=== PATIENT | male | born 1980 | race Caucasian/White ===

== ENCOUNTER 2018-12-07 00:18 | Emergency (ER) | payer BC, OTHER ==
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
[2018-12-07] MEDS ORDERED: IBUPROFEN 600 MG TABLET PO STA (00:48)
[2018-12-07] MEDS ORDERED: TETANUS/DIPHTHERIA/PERTUSSIS 0.5 ML SYRINGE IM ONE (00:56)
--- NOTE | 2018-12-07 01:19 | XRAY Report ---
Reason: injury, pain Procedure Date: 12/07/2018 Accession Number: [id number] / [id number] Procedure: XR - Hand 3 View LT CPT Code: FULL RESULT: EXAM: LEFT HAND RADIOGRAPHY EXAM DATE: 12/07/2018 01:07 AM. CLINICAL HISTORY: Injury, pain. COMPARISON: None. TECHNIQUE: 3 views. FINDINGS: Bones: Normal. No fractures or bone lesions. Joints: Normal. No subluxations. Soft Tissues: Soft tissue swelling. No radiopaque foreign body. IMPRESSION: Soft tissue swelling, but no evidence of fracture or radiopaque foreign body. [facility]
[2018-12-07] MEDS ORDERED: LIDOCAINE 1% 2 ML VIAL SUBQ STA (01:52)
[2018-12-07] MEDS ORDERED: BACITRACIN OINT TOP STA (02:48)
[2018-12-07 03:11] VITALS: BP 125/87
== END 2018-12-07 03:15 | disposition home or self-care (01) ==
LOC: ED 00:18
DX: S61.412A Laceration without foreign body of left hand, initial encounter (principal); W01.110A Fall on same level from slipping, tripping and stumbling with subsequent striking against sharp glass, initial encounter; Y93.89 Activity, other specified; Y92.019 Unspecified place in single-family (private) house as the place of occurrence of the external cause
CPT/HCPCS: 12002; 73130; 90471; 90715; 99282; 99283; A9270